=== PATIENT | male | born 1965 | race Caucasian/White ===

== ENCOUNTER 2021-04-04 12:38 | Emergency (ER) | payer MEDICARE, OTHER ==
[~2021-04-04] VITALS: Ht 175.3 cm; Wt 127.2 kg
[~2021-04-04 12:38] MED LIST: AMIO400T5 PO; ASPI-630 PO; ATOR40TA59 PO; BYSTOLIC20 MG PO; CARV25TA2 PO; CARV3.1210 PO; CPAP; DABI150C PO; DIGO250T12 PO; DILT240C32 PO; EZET1TAB35 PO; FURO40TA4 PO; FURO80TA72 PO; LACT1CAP19 PO; LOSA-73 PO; LOSA25TA54 PO; METF10007 PO; METH-572 PO; METH10OR PO; NITR0.4T22 SL; POTA10TA12 PO; [UNRECOGNIZED DRUG - CODE] PO
[2021-04-04 13:33] LABS: BASO # 0.1 x10^3/uL (0.0-0.2); BASO % 1 % (0-3); EOS # 0.1 x10^3/uL (0.0-0.7); EOS % 1 % (0-3); HEMATOCRIT 46.2 % (39.0-53.0); HEMOGLOBIN 15.3 g/dL (13.0-17.5); LYMPH # 1.4 x10^3/uL (1.0-4.8); LYMPH % 18 % (24-48); MEAN CORPUSCULAR HEMOGLOBIN 30 pg (25-35); MEAN CORPUSCULAR HGB CONC 33 g/dL (31-37); MEAN CORPUSCULAR VOLUME 89 fL (79-100); MONO # 0.5 x10^3/uL (0.0-1.1); MONO % 6 % (0-9); NEUT # 5.6 x10^3/uL (1.8-7.7); NEUT % 73 % (31-73); PLATELET COUNT 196 x10^3/uL (140-400); RED BLOOD COUNT 5.17 x10^6/uL (4.30-5.70); RED CELL DISTRIBUTION WIDTH 14.3 % (11.5-14.5); WHITE BLOOD COUNT 7.6 x10^3/uL (4.0-11.0)
[2021-04-04 13:49] LABS: CALCIUM 8.9 mg/dL (8.5-10.1); CREATININE 0.9 mg/dL (0.7-1.3); POTASSIUM 3.9 mmol/L (3.5-5.1)
[2021-04-04 13:52] LABS: ALBUMIN 3.5 g/dL (3.4-5.0); ALBUMIN/GLOBULIN RATIO 0.7 (1.0-1.7); TOTAL BILIRUBIN 0.8 mg/dL (0.2-1.0); TOTAL PROTEIN 8.3 g/dL (6.4-8.2)
--- NOTE | 2021-04-04 14:10 | PHYS DOC ---
Past Medical History Past Medical History: A-Fib, COPD, Hypertension, MO Additional Past Surgical Histo: ABLASION FOR AFIB, stents Smoking Status: Current Every Day Smoker Alcohol Use: None Drug Use: None General Adult EDM: Chief Complaint: LOWER EXTREMITY SWELLING HPI: HPI: Patient is a 55 year old male with history of COPD, CAD and hypertension who presents with bilateral lower extremity pain. Patient states that 4 days ago, his right calf and lower extremity became painful. Shortly after, he states his left lower leg began hurting as well. Today, he states that he has pain in his left hip, causing him to come in for evaluation. Patient denies any trauma or injury, ulceration, fever, chills, chest pain, palpitations or new shortness of breath/cough. Patient is not on daily supplemental O2, however uses CPAP at night and as needed for shortness of breath at home. Review of Systems: Review of Systems: Constitutional: Denies fever, chills or generalized weakness Eyes: Denies change in visual acuity, visual field deficits or discharge HENT: Denies ear pain, nasal congestion or sore throat Respiratory: See HPI Cardiovascular: See HPI GI: Denies abdominal pain, nausea, vomiting, bloody stools or diarrhea : Denies dysuria or hematuria Musculoskeletal: See HPI Integument: Denies rash or other skin lesion Neurologic: Denies headache, focal weakness or sensory changes Heart Score: C/O Chest Pain: No Allergies: Allergies: Allergies Coded Allergies Type Severity Reaction Last Updated Verified lisinopril Allergy Severe angioedema 04/04/21 Yes Physical Exam: PE: Constitutional: Obese, patient appears in pain, non-toxic appearance. HENT: Normocephalic, atraumatic, bilateral external ears normal, nose normal. Eyes: EOMI, conjunctiva normal, no discharge. Neck: Normal range of motion, no stridor. Abdomen: Protuberant abdomen, no pulsatile masses. Skin: See below for lower extremity exam.skin otherwise warm, dry, no erythema, no rash. Back: No tenderness, no CVA tenderness. Extremities: Stasis dermatitis rash bilateral lower extremities extending up to proximal calf, minimal tenderness near bilateral ankles, no cyanosis, no clubbing, ROM intact, symmetrical lower extremity edema without pitting. Pelvis stable without hip tenderness. Neurologic: Alert and oriented x4, no focal deficits noted. Current Patient Data: Labs: Laboratory Tests Test 2/11/22 13:27 White Blood Count 7.6 x10^3/uL (4.0-11.0) Red Blood Count 5.17 x10^6/uL (4.30-5.70) Hemoglobin 15.3 g/dL (13.0-17.5) Hematocrit 46.2 % (39.0-53.0) Mean Corpuscular Volume 89 fL (79-100) Mean Corpuscular Hemoglobin 30 pg (25-35) Mean Corpuscular Hemoglobin Concent 33 g/dL (31-37) Red Cell Distribution Width 14.3 % (11.5-14.5) Platelet Count 196 x10^3/uL (140-400) Neutrophils (%) (Auto) 73 % (31-73) Lymphocytes (%) (Auto) 18 % (24-48) L Monocytes (%) (Auto) 6 % (0-9) Eosinophils (%) (Auto) 1 % (0-3) Basophils (%) (Auto) 1 % (0-3) Neutrophils # (Auto) 5.6 x10^3/uL (1.8-7.7) Lymphocytes # (Auto) 1.4 x10^3/uL (1.0-4.8) Monocytes # (Auto) 0.5 x10^3/uL (0.0-1.1) Eosinophils # (Auto) 0.1 x10^3/uL (0.0-0.7) Basophils # (Auto) 0.1 x10^3/uL (0.0-0.2) Sodium Level 136 mmol/L (136-145) Potassium Level 3.9 mmol/L (3.5-5.1) Chloride Level 95 mmol/L (98-107) L Carbon Dioxide Level 34 mmol/L (21-32) H Anion Gap 7 (6-14) Blood Urea Nitrogen 12 mg/dL (8-26) Creatinine 0.9 mg/dL (0.7-1.3) Estimated GFR (Cockcroft-Gault) 87.0 BUN/Creatinine Ratio 13 (6-20) Glucose Level 198 mg/dL (70-99) H Calcium Level 8.9 mg/dL (8.5-10.1) Total Bilirubin 0.8 mg/dL (0.2-1.0) Aspartate Amino Transferase (AST) 14 U/L (15-37) L Alanine Aminotransferase (ALT) 15 U/L (16-63) L Alkaline Phosphatase 119 U/L (46-116) H Total Protein 8.3 g/dL (6.4-8.2) H Albumin 3.5 g/dL (3.4-5.0) Albumin/Globulin Ratio 0.7 (1.0-1.7) L Laboratory Tests 04/04/21 13:27 Laboratory Tests 04/04/21 13:27 Vital Signs: Vital Signs Date Time Temp Pulse Resp B/P (MAP) Pulse Ox O2 Delivery O2 Flow Rate FiO2 04/04/21 12:40 98.6 87 20 175/98 (123) 93 98.6 Radiology/Procedures: Radiology/Procedures: PROCEDURE: CT ANGIOGRAPHY CHEST Examination: CT angiography chest with IV contrast HISTORY: History of hypoxia COMPARISON: None available TECHNIQUE: Axial CT angiographic images were performed with IV contrast. Coronal and sagittal reformats are performed Exposure: One or more of the following individualized dose reduction techniques were utilized for this examination: 1. Automated exposure control 2. Adjustment of the mA and/or kV according to patient size 3. Use of iterative reconstruction technique FINDINGS: The visualized grossly appears unremarkable. Central airways are patent. Ascending aorta measures 4.2 cm in transverse dimension.Coronary artery calcifications identified. There is no evidence of filling defect identified in the main pulmonary arterial trunk and right and left main pulmonary arteries and the visualized lobar, segmental branches of pulmonary arteries. Mild narrowing of the bronchial branches bilaterally could be mild bronchitis. Mild bibasilar lung atelectasis. The visualized liver, spleen, adrenals grossly appears unremarkable. Minimal fat stranding identified about the bilateral kidneys. There is cystic structure identified in the left kidney measuring 1.8 cm measuring 40 Hounsfield units. Minimal sludge within the gallbladder. Mild degenerative changes thoracic spine. IMPRESSION: 1. No evidence of pulmonary embolism. 2. Mild narrowing of the bronchial branches bilaterally could be mild bronchitis. 3. Mild bibasilar lung atelectasis. 4. Coronary artery calcifications. 5. 1.8 cm cystic structure identified in the left kidney measuring 40 Hounsfield units could be a cyst or cystic lesion. Follow-up nonemergent ultrasound kidneys can be considered. 6. Minimal sludge in the gallbladder. Electronically signed by: Santiago Palacios MD (04/04/2021 3:18 PM) [id number] PROCEDURE: VENOUS LOWER EXT BILATERAL EXAM: Bilateral lower extremity venous Doppler sonogram. HISTORY: Pain and swelling. TECHNIQUE: Puga scale and color Doppler sonographic evaluation of the bilateral lower extremity veins with spectral waveform analysis was performed. FINDINGS: There is normal color flow, normal compressibility and there are normal spectral waveforms in the common femoral, superficial femoral, popliteal, posterior tibial and greater saphenous veins. IMPRESSION: No Doppler evidence of lower extremity deep venous thrombosis. Electronically signed by: Vanessa Gaxiola MD (04/04/2021 2:06 PM) [id number] Course & Med Decision Making: Course & Med Decision Making Pertinent Labs and Imaging studies reviewed. (See chart for details) Patient is a 55-year-old male with multiple comorbidities who presents with bi lateral lower extremity pain. On exam, patient appears to have stasis dermatitis. DVT and PE will be ruled out. Work-up today is reassuring. CT chest shows bronchitis, which patient is aware of. Discussed these findings with the patient. Patient is instructed to use compression socks and to elevate his lower extremities when resting. I advised that he follow-up with his primary care doctor and/or pain management going forward. Return precautions provided. Patient understands and is agreeable to discharge plan. Vick Disclaimer: Vick Disclaimer: This electronic medical record was generated, in whole or in part, using a voice recognition dictation system. Departure Departure Impression: Primary Impression: Venous stasis dermatitis of both lower extremities Additional Impressions: History of COPD Chronic bronchitis with COPD (chronic obstructive pulmonary disease) Disposition: HOME / SELF CARE / HOMELESS Condition: STABLE Referrals: UNKNOWN PCP NAME (PCP) Patient Instructions: Bronchitis, [id number], Chronic Obstructive Pulmonary Disease, [id number], Stasis Dermatitis Additional Instructions: EMERGENCY DEPARTMENT GENERAL DISCHARGE INSTRUCTIONS Thank you for coming to [facility] Emergency Department (ED) roshan barron and trusting us with you care. We trust that you had a positive experience in our Emergency Department. If you wish to speak to the department management, you may call the director at . YOUR FOLLOW UP INSTRUCTIONS ARE FOLLOWS: 1. Follow up with your primary care doctor. If you do not have a primary doctor, please ask for a resource list of physicians or clinics that may be able to assist you with follow up care. 2. The emergency provider has interpreted your imaging studies, if any were ordered. The radiology home theater specialist also reviewed them. If there is a change in the findings, you will be notified in 48 hours when at all possible. 3. If a lab test or culture has been done, your results will be reviewed and you will be notified if you need a change in treatment. 4. Follow instructions verbalized to you and refer to the printouts if needed. ADDITIONAL INSTRUCTIONS AND INFORMATION: 1. Your care today has been supervised by a physician who is specially trained in emergency care. Many problems require more than one evaluation for a complete diagnosis and treatment. We recommend that you schedule your follow up appointment as recommended to ensure complete treatment of you illness or injury. If you are unable to obtain follow up care and continue to have a problem, or if your condition worsens, we recommend that you return to the ED. 2. We are not able to safely determine your condition over the phone nor are we able to give sound medical advice over the phone. For these safety reasons, if you call for medical advice we will ask you to come to the ED for further evaluation. 3. If you have any questions regarding these discharge instructions please call the ED at . SAFETY INFORMATION: In the interest of safety, wellness, and injury prevention; we encourage you to wear your seat belt, if you smoke; quite smoking, and we encourage family to use a protective helmet for bicycling and other sporting events that present an increased risk for head injury. IF YOUR SYMPTOMS WORSEN OR NEW SYMPTOMS DEVELOP, OR YOU HAVE CONCERNS ABOUT YOUR CONDITION; OR IF YOUR CONDITION WORSENS WHILE YOU ARE WAITING FOR YOUR FOLLOW UP APPOINTMENT; EITHER CONTACT YOUR PRIMARY CARE DOCTOR, THE PHYSICIAN WHOSE NAME AND NUMBER YOU WERE GIVEN, OR RETURN TO THE ED IMMEDIATELY. CASANDRA PRATT Apr 04, 2021 14:10
[2021-04-04] MEDS ORDERED: KETOROLAC 60 MG/2 ML VIAL. IM ONE (14:15)
[2021-04-04] MEDS ORDERED: CONTRAST GIVEN. MC PRN (14:45)
[2021-04-04] MEDS ORDERED: IOHEXOL 350 MG/ML 100 ML VIAL. IV ONE (14:45)
--- NOTE | 2021-04-04 15:21 | RAD ---
Examination: CT angiography chest with IV contrast HISTORY: History of hypoxia COMPARISON: None available TECHNIQUE: Axial CT angiographic images were performed with IV contrast. Coronal and sagittal reforma ts are performed Exposure: One or more of the following individualized dose reduction techniques were utilized for thi s examination: 1. Automated exposure control 2. Adjustment of the mA and/or kV according to patient size 3. Use of iterative reconstruction technique FINDINGS: The visualized grossly appears unremarkable. Central airways are patent. Ascending aorta measures 4.2 cm in transverse dimension.Coronary artery calcifications identified. There is no evidence of fillin g defect identified in the main pulmonary arterial trunk and right and left main pulmonary arteries a nd the visualized lobar, segmental branches of pulmonary arteries. Mild narrowing of the bronchial br anches bilaterally could be mild bronchitis. Mild bibasilar lung atelectasis. The visualized liver, s pleen, adrenals grossly appears unremarkable. Minimal fat stranding identified about the bilateral ki dneys. There is cystic structure identified in the left kidney measuring 1.8 cm measuring 40 Hounsfie ld units. Minimal sludge within the gallbladder. Mild degenerative changes thoracic spine. IMPRESSION: 1. No evidence of pulmonary embolism. 2. Mild narrowing of the bronchial branches bilaterally could be mild bronchitis. 3. Mild bibasilar lung atelectasis. 4. Coronary artery calcifications. 5. 1.8 cm cystic structure identified in the left kidney measuring 40 Hounsfield units could be a cy st or cystic lesion. Follow-up nonemergent ultrasound kidneys can be considered. 6. Minimal sludge in the gallbladder. Electronically signed by: Santiago Palacios MD (04/04/2021 3:18 PM) [id number]
[2021-04-04 16:11] VITALS: BP 158/90
== END 2021-04-04 16:12 | disposition home or self-care (01) ==
LOC: ER 12:38
DX: I87.2 Venous insufficiency (chronic) (peripheral) (principal); J44.9 Chronic obstructive pulmonary disease, unspecified; I48.91 Unspecified atrial fibrillation; I10 Essential (primary) hypertension; I25.2 Old myocardial infarction; F17.200 Nicotine dependence, unspecified, uncomplicated; I25.10 Atherosclerotic heart disease of native coronary artery without angina pectoris; Z88.6 Allergy status to analgesic agent
CPT/HCPCS: 36415; 71275; 80053; 85025; 93970; 96372; 99285; J1885; Q9967